=== PATIENT | male | born 1960 | race African-American/Black ===

== ENCOUNTER 2020-11-09 03:02 | Inpatient (IN) ==
[2020-11-09] MEDS ORDERED: NITROGLYCERIN SL 0.4 MG TABLET SL STA (03:15)
[2020-11-09 03:20] LABS: Basophils # 0.1 10*3/uL (0.0-0.2); Basophils % 0.8 % (0.0-0.8); Eosinophils # 0.2 10*3/uL (0.0-0.87); Eosinophils % 2.8 % (0.00-10.9); Hematocrit 29.7 VOL% (42.0-52.0); Hemoglobin 9.2 GM/DL (14.0-18.0); Immature Granulocytes % 0.3 %; Immature Granulocytes Absolute 0.02 #; Lymphocytes # 1.3 10*3/uL (1.4-4.0); Lymphocytes % 16.8 % (21.2-54.2); Monocytes % 8.7 % (1.7-12.7); Neutrophils % 70.6 % (38.7-73.9); Platelet Count 141 T/CUMM (130-400); Red Blood Count 3.23 MC/CUMM (3.8-5.5); White Blood Count 7.8 T/CUMM (4-12)
[2020-11-09 03:33] LABS: INR 1.1; PT Patient Result 12.3 SECS (10.5-12.0); Partial Thromboplastin Time 24.7 SECS (23.9-33.8)
[2020-11-09 03:43] LABS: Albumin 3.7 G/DL (3.4-5.0); Bilirubin,Total 0.4 MG/DL (0.20-1.00); Calcium 8.7 MG/DL (8.5-10.1); Osmolality,Calculated 293.5 MOS/KG (273-304); Total Protein 7.6 G/DL (6.4-8.2)
[2020-11-09 03:44] LABS: Potassium 5.9 MMOL/L (3.5-5.1)
[2020-11-09] MEDS ORDERED: hydrALAZINE 20 MG/1 ML VIAL IV STA (04:22)
[2020-11-09] MEDS ORDERED: MORPHINE 2 MG/1 ML SYRINGE IV STA (04:22)
[2020-11-09] MEDS ORDERED: ONDANSETRON 4 MG/2 ML VIAL IV STA (04:22)
[2020-11-09] MEDS ORDERED: ONDANSETRON 4 MG/2 ML VIAL ONE (04:23)
[2020-11-09] MEDS ORDERED: MORPHINE 2 MG/1 ML SYRINGE ONE (04:23)
[2020-11-09] MEDS ORDERED: hydrALAZINE 20 MG/1 ML VIAL ONE (04:24)
[2020-11-09] MEDS ORDERED: DEXTROSE 50% 25 GM/50 ML VIAL IV PRN (04:53)
[2020-11-09] MEDS ORDERED: GLUCAGON 1 MG VIAL IM PRN (04:53)
[2020-11-09] MEDS ORDERED: MORPHINE 2 MG/1 ML SYRINGE IV PRN (04:53)
[2020-11-09] MEDS ORDERED: SODIUM POLYSTYRENE SULFATE 15 GM/60 ML BOTTLE PO STA (04:53)
[2020-11-09] MEDS ORDERED: ONDANSETRON 4 MG/2 ML VIAL IV PRN (04:53)
[2020-11-09] MEDS: hydrALAZINE 20 MG/1 ML VIAL IV PRN (06:28)
[2020-11-09 06:40] LABS: Risk Ratio 3.19; VLDL Cholesterol 21.2 MG/DL
[2020-11-09] MEDS ORDERED: NITROGLYCERIN SL 0.4 MG TABLET SL PRN (06:53)
[2020-11-09] MEDS ORDERED: amLODIPine 10 MG TABLET PO ONE (06:53)
[2020-11-09] MEDS ORDERED: ENOXAPARIN 80 MG/0.8 ML SYRINGE SUBCUT ONE (06:54)
[2020-11-09] MEDS: PANTOPRAZOLE 40 MG TABLET PO SCH (08:57)
[2020-11-09] MEDS: ASPIRIN EC 325 MG TABLET PO SCH (08:58)
[2020-11-09] MEDS: METOPROLOL TARTRATE 50 MG TABLET PO SCH ×2 (08:59→21:15)
[2020-11-09] MEDS: LOSARTAN 50 MG TABLET PO SCH ×2 (08:59→21:15)
[2020-11-09] MEDS: NITROGLYCERIN 2% OINT 1 INCH/GM PACK TOP SCH (12:03)
[2020-11-09] MEDS: ACETAMINOPHEN 325 MG TABLET PO PRN (12:04)
[2020-11-09] MEDS: ATORVASTATIN 40 MG TABLET PO SCH (21:15)
[2020-11-10] MEDS: NITROGLYCERIN 2% OINT 1 INCH/GM PACK TOP SCH ×6 (00:58→19:07)
[2020-11-10] MEDS: ACETAMINOPHEN 325 MG TABLET PO PRN (00:59)
[2020-11-10] MEDS: hydrALAZINE 20 MG/1 ML VIAL IV PRN (03:22)
[2020-11-10 06:31] LABS: Basophils % 0.7 % (0.0-0.8); Eosinophils # 0.2 10*3/uL (0.0-0.87); Eosinophils % 3.7 % (0.00-10.9); Hematocrit 27.3 VOL% (42.0-52.0); Hemoglobin 8.3 GM/DL (14.0-18.0); Immature Granulocytes % 0.3 %; Immature Granulocytes Absolute 0.02 #; Lymphocytes # 1.2 10*3/uL (1.4-4.0); Lymphocytes % 21.1 % (21.2-54.2); Mean Corpuscular HGB Conc 30.4 GM/DL (32-36); Mean Corpuscular Volume 91.9 FL (87-102); Mean Platelet Volume 11.3 FL (9.6-12.0); Monocytes % 10.2 % (1.7-12.7); Platelet Count 110 T/CUMM (130-400); Red Blood Count 2.97 MC/CUMM (3.8-5.5); Red Cell Distribution Width 19.7 % (9.3-17.3); White Blood Count 5.9 T/CUMM (4-12)
[2020-11-10 06:53] LABS: Calcium 9.1 MG/DL (8.5-10.1); Osmolality,Calculated 281.7 MOS/KG (273-304); Potassium 4.8 MMOL/L (3.5-5.1)
[2020-11-10 07:00] LABS: Bilirubin,Total 1.1 MG/DL (0.20-1.00); Osmolality,Calculated 284.5 MOS/KG (273-304); Potassium 4.9 MMOL/L (3.5-5.1); Total Protein 6.5 G/DL (6.4-8.2)
[2020-11-10] MEDS: LOSARTAN 50 MG TABLET PO SCH ×2 (09:19→20:44)
[2020-11-10] MEDS: ASPIRIN EC 325 MG TABLET PO SCH (09:19)
[2020-11-10] MEDS: METOPROLOL TARTRATE 50 MG TABLET PO SCH ×2 (09:19→20:44)
[2020-11-10] MEDS: PANTOPRAZOLE 40 MG TABLET PO SCH (09:19)
[2020-11-10] MEDS: ATORVASTATIN 40 MG TABLET PO SCH (20:44)
[2020-11-10] MEDS: cloNIDine 0.1 MG TABLET PO SCH (20:44)
[2020-11-11] MEDS: hydrALAZINE 20 MG/1 ML VIAL IV PRN ×2 (03:39→11:28)
[2020-11-11 06:46] LABS: High Sensitive Troponin I* 373.4 ng/L (0-78)
[2020-11-11] MEDS: NITROGLYCERIN 2% OINT 1 INCH/GM PACK TOP SCH ×5 (07:06→23:27)
[2020-11-11] MEDS: SEVELAMER CARBONATE 800 MG TABLET PO SCH ×3 (08:47→16:15)
[2020-11-11] MEDS: LOSARTAN 50 MG TABLET PO SCH (08:47)
[2020-11-11] MEDS: PANTOPRAZOLE 40 MG TABLET PO SCH (08:47)
[2020-11-11] MEDS: ASPIRIN EC 325 MG TABLET PO SCH (08:47)
[2020-11-11] MEDS: METOPROLOL TARTRATE 50 MG TABLET PO SCH ×2 (08:47→20:11)
[2020-11-11] MEDS: cloNIDine 0.1 MG TABLET PO SCH (08:48)
[2020-11-11] MEDS: ATORVASTATIN 40 MG TABLET PO SCH (20:11)
[2020-11-11] MEDS ORDERED: hydrALAZINE 10 MG TABLET PO SCH (21:00)
[2020-11-12] MEDS: NITROGLYCERIN 2% OINT 1 INCH/GM PACK TOP SCH ×4 (05:45→23:49)
[2020-11-12 06:42] LABS: Eosinophils # 0.2 10*3/uL (0.0-0.87); Eosinophils % 4.3 % (0.00-10.9); Hematocrit 26.8 VOL% (42.0-52.0); Hemoglobin 8.1 GM/DL (14.0-18.0); Immature Granulocytes % 0.3 %; Immature Granulocytes Absolute 0.01 #; Lymphocytes % 26.3 % (21.2-54.2); Mean Corpuscular HGB Conc 30.2 GM/DL (32-36); Mean Corpuscular Volume 93.1 FL (87-102); Monocytes % 11.6 % (1.7-12.7); Neutrophils % 56.5 % (38.7-73.9); Platelet Count 107 T/CUMM (130-400); Red Blood Count 2.88 MC/CUMM (3.8-5.5); Red Cell Distribution Width 18.7 % (9.3-17.3)
[2020-11-12 07:15] LABS: Albumin 3.1 G/DL (3.4-5.0); Calcium 9.1 MG/DL (8.5-10.1); Potassium 5.4 MMOL/L (3.5-5.1)
[2020-11-12 07:21] LABS: Hypochromasia 1+
[2020-11-12 07:22] LABS: Anisocytosis 1+; Microcytosis 1+; Ovalocytes Slight; Polychromasia Slight
[2020-11-12 07:23] LABS: Platelet Estimate Decreased
[2020-11-12] MEDS: ISOSORBIDE MONONITRATE 30 MG TABLET PO SCH (08:44)
[2020-11-12] MEDS: PANTOPRAZOLE 40 MG TABLET PO SCH (08:44)
[2020-11-12] MEDS: ASPIRIN EC 325 MG TABLET PO SCH (08:44)
[2020-11-12] MEDS: minoxidiL 2.5 MG TABLET PO SCH (08:44)
[2020-11-12] MEDS: SEVELAMER CARBONATE 800 MG TABLET PO SCH ×3 (09:14→17:21)
[2020-11-12] MEDS: METOPROLOL TARTRATE 50 MG TABLET PO SCH ×2 (09:14→20:20)
[2020-11-12] MEDS: ACETAMINOPHEN 325 MG TABLET PO PRN (12:58)
[2020-11-12] MEDS: ATORVASTATIN 40 MG TABLET PO SCH (20:20)
[2020-11-13] MEDS: NITROGLYCERIN 2% OINT 1 INCH/GM PACK TOP SCH ×2 (05:56→12:54)
[2020-11-13 07:19] LABS: Eosinophils # 0.2 10*3/uL (0.0-0.87); Eosinophils % 4.3 % (0.00-10.9); Hematocrit 27.7 VOL% (42.0-52.0); Hemoglobin 8.5 GM/DL (14.0-18.0); Immature Granulocytes % 0.2 %; Immature Granulocytes Absolute 0.01 #; Lymphocytes # 1.2 10*3/uL (1.4-4.0); Lymphocytes % 28.5 % (21.2-54.2); Mean Corpuscular HGB Conc 30.7 GM/DL (32-36); Mean Corpuscular Volume 92.3 FL (87-102); Monocytes % 12.2 % (1.7-12.7); Neutrophils % 53.8 % (38.7-73.9); Platelet Count 90 T/CUMM (130-400); Red Cell Distribution Width 18.4 % (9.3-17.3); White Blood Count 4.2 T/CUMM (4-12)
[2020-11-13 07:45] LABS: Hypochromasia 1+; Microcytosis 1+; Platelet Estimate Decreased
[2020-11-13 07:56] LABS: Calcium 9.1 MG/DL (8.5-10.1); Osmolality,Calculated 279.8 MOS/KG (273-304); Potassium 5.3 MMOL/L (3.5-5.1)
[2020-11-13] MEDS: SEVELAMER CARBONATE 800 MG TABLET PO SCH ×2 (09:35→12:55)
[2020-11-13] MEDS: ASPIRIN EC 325 MG TABLET PO SCH (09:35)
[2020-11-13] MEDS: ISOSORBIDE MONONITRATE 30 MG TABLET PO SCH (09:35)
[2020-11-13] MEDS: minoxidiL 2.5 MG TABLET PO SCH (09:36)
[2020-11-13] MEDS: METOPROLOL TARTRATE 50 MG TABLET PO SCH (09:36)
[2020-11-13] MEDS: PANTOPRAZOLE 40 MG TABLET PO SCH (09:36)
[2020-11-13 14:58] VITALS: BP 147/71
== END 2020-11-13 13:00 | disposition home or self-care (01) | DRG 280 ==
LOC: EDUNIT# → EDBD → N.ED 03:02 → N.EDINP 03:02 → SUATTDRO 04:53 → N.EDINP 05:26 → N.TELEN 05:36
PROVIDERS: ADMIT Internal Medicine Geriatric Medicine; ATTEND Internal Medicine